=== PATIENT | female | born 1985 | race African-American/Black ===

== ENCOUNTER 2017-09-24 18:51 | Emergency (ER) | payer OTHER ==
[~2017-09-24] VITALS: Ht 165.1 cm; Wt 65.0 kg
[2017-09-24 18:56] VITALS: BP 124/78
[2017-09-24] MEDS ORDERED: SODIUM CHLORIDE 0.9% 1,000 ML IV ONE (19:06)
[2017-09-24] MEDS ORDERED: ONDANSETRON HCL 4MG/2ML VIAL IV ONE (19:15)
[2017-09-24 19:41] LABS: HEMATOCRIT. 33.1 % (36.0-48.0); HEMOGLOBIN. 10.9 g/dL (12.0-16.0); MEAN CORPUSCULAR HEMOGLOBIN 29.1 pg (28.0-32.0); MEAN CORPUSCULAR VOLUME 88.8 fL (81.0-99.0); MEAN PLATELET VOLUME 9.3 fl (7.4-10.4); PLATELET 236 x1000/uL (130-400); RED BLOOD CELL COUNT 3.73 mill/uL (4.2-5.4); RED CELL DISTRIBUTION WIDTH 18.2 % (11.6-14.6)
[2017-09-24 19:49] LABS: CHLORIDE 108 mEq/L (98-107); ETHANOL BLOOD 94 mg/dL; HCG SCREEN NEGATIVE
[2017-09-24] MEDS ORDERED: POTASSIUM CHLORIDE 20MEQ TABLET SR PO ONE (20:00)
[2017-09-24 20:39] LABS: NUCLEATED RED BLOOD CELLS 1 /100 WBC; PLATELET ESTIMATE NORMAL
== END 2017-09-24 21:26 | disposition left against medical advice (07) ==
LOC: ER 19:06
DX: R53.1 Weakness (principal); F10.129 Alcohol abuse with intoxication, unspecified; E16.2 Hypoglycemia, unspecified; E87.6 Hypokalemia; Y90.4 Blood alcohol level of 80-99 mg/100 ml; D72.829 Elevated white blood cell count, unspecified; F12.90 Cannabis use, unspecified, uncomplicated; Z87.442 Personal history of urinary calculi; Z85.79 Personal history of other malignant neoplasms of lymphoid, hematopoietic and related tissues; Z92.21 Personal history of antineoplastic chemotherapy; Z88.2 Allergy status to sulfonamides; Z98.890 Other specified postprocedural states
CPT/HCPCS: 36415; 80053; 84484; 84703; 85025; 99285; G0482; J7030